=== PATIENT | female | born 1980 | race Caucasian/White ===

== ENCOUNTER 2017-02-28 18:00 | Inpatient (IN) | payer OTHER ==
[~2017-02-28] VITALS: Ht 157.5 cm; Wt 72.0 kg
[2017-02-28 21:08] LABS: PLATELET COUNT 249 x10^3mcL (130-400); RED CELL DISTRIBUTION WIDTH 13.8 % (11.5-14.5)
[2017-02-28 21:18] LABS: CARBON DIOXIDE 30.9 mmol/L (21-32); CHLORIDE SERUM 100 mmol/L (98-107); CREATININE SERUM 0.8 mg/dL (0.6-1.0); GFR1 > 60 mL/min; GLUCOSE SERUM 123 mg/dL (74-106); POTASSIUM SERUM 3.9 mmol/L (3.5-5.1); SODIUM SERUM 136 mmol/L (136-145)
[2017-02-28 21:22] LABS: ALBUMIN 3.7 g/dL (3.4-5.0); ALKALINE PHOSPHATASE 95 U/L (46-116); ALT/SGPT 23 U/L (14-59); AST/SGOT 3 U/L (15-37); LIPASE 101 IU/L (73-393)
[2017-02-28 21:42] LABS: BAND NEUTROPHIL 3 % (0-10); BASOPHIL 0 % (0-2); MONOCYTE 6 % (0-7); SEGMENTED NEUTROPHILS 83 % (37-75)
[2017-02-28 21:43] LABS: rbc morphology (normal/abnorm) NORMAL (NORMAL)
[2017-02-28 22:49] LABS: microscopic required? NO
[2017-02-28 23:17] LABS: urine erythrocyte NEGATIVE (NEGATIVE)
[2017-02-28 23:19] LABS: AMPHETAMINE QUAL UR NONE DETECTED (NEG <=1000)
[2017-02-28 23:39] LABS: MAGNESIUM 1.9 mg/dL (1.8-2.4); PHOSPHOROUS 3.4 mg/dL (2.5-4.9)
[2017-02-28 23:42] LABS: T3 TOTAL 1.06 ng/mL
[2017-02-28 23:49] VITALS: BP 112/62
[2017-02-28 23:50] LABS: FREE T4 0.95 ng/dL (0.76-1.46); FREE THYROXINE INDEX 2.7 ug/dL (1.4-4.5)
[2017-03-01] VITALS (7 sets, daily range): BP systolic 93–107; BP diastolic 41–65; Ht 157.5 cm; Wt 72.0 kg
[2017-03-01 07:49] LABS: BASOPHIL % 0.1 % (0-2); PLATELET COUNT 198 x10^3mcL (130-400); RED CELL DISTRIBUTION WIDTH 13.6 % (11.5-14.5)
[2017-03-01 08:00] LABS: CALCIUM 7.6 mg/dL (8.5-10.1); CARBON DIOXIDE 27.3 mmol/L (21-32); CHLORIDE SERUM 103 mmol/L (98-107); CREATININE SERUM 0.7 mg/dL (0.6-1.0); GFR1 > 60 mL/min; GLUCOSE SERUM 121 mg/dL (74-106); POTASSIUM SERUM 3.5 mmol/L (3.5-5.1); SODIUM SERUM 138 mmol/L (136-145)
[2017-03-02 05:39] VITALS: BP 90/50
[2017-03-02 06:31] LABS: CALCIUM 7.3 mg/dL (8.5-10.1); CARBON DIOXIDE 29.7 mmol/L (21-32); CHLORIDE SERUM 103 mmol/L (98-107); CREATININE SERUM 0.7 mg/dL (0.6-1.0); GFR1 > 60 mL/min; GLUCOSE SERUM 125 mg/dL (74-106); PHOSPHOROUS 2.6 mg/dL (2.5-4.9); SODIUM SERUM 139 mmol/L (136-145)
[2017-03-02 06:51] LABS: BASOPHIL % 0.2 % (0-2); PLATELET COUNT 193 x10^3mcL (130-400); RED CELL DISTRIBUTION WIDTH 13.7 % (11.5-14.5)
[2017-03-02 09:30] VITALS: BP 110/63
[2017-03-02 14:20] VITALS: BP 136/78
[2017-03-02 17:20] VITALS: BP 102/56
[2017-03-02 21:34] VITALS: BP 96/55
[2017-03-03 05:58] VITALS: BP 97/60
[2017-03-03 06:07] LABS: BASOPHIL % 0.3 % (0-2); PLATELET COUNT 192 x10^3mcL (130-400)
[2017-03-03 06:12] LABS: CALCIUM 7.6 mg/dL (8.5-10.1); CARBON DIOXIDE 29.1 mmol/L (21-32); CHLORIDE SERUM 106 mmol/L (98-107); CREATININE SERUM 0.8 mg/dL (0.6-1.0); GFR1 > 60 mL/min; GLUCOSE SERUM 95 mg/dL (74-106); PHOSPHOROUS 2.9 mg/dL (2.5-4.9); POTASSIUM SERUM 3.5 mmol/L (3.5-5.1); SODIUM SERUM 139 mmol/L (136-145)
[2017-03-03 09:44] VITALS: BP 101/64
[2017-03-03 14:02] VITALS: BP 101/70
[2017-03-03 17:12] VITALS: BP 106/66
[2017-03-03 21:02] VITALS: BP 107/61
[2017-03-04 05:12] VITALS: BP 104/65
[2017-03-04 06:10] LABS: BASOPHIL % 0.3 % (0-2); PLATELET COUNT 221 x10^3mcL (130-400); RED CELL DISTRIBUTION WIDTH 13.6 % (11.5-14.5)
[2017-03-04 06:15] LABS: CALCIUM 8.2 mg/dL (8.5-10.1); CARBON DIOXIDE 25.9 mmol/L (21-32); CHLORIDE SERUM 104 mmol/L (98-107); CREATININE SERUM 0.8 mg/dL (0.6-1.0); GFR1 > 60 mL/min; GLUCOSE SERUM 105 mg/dL (74-106); POTASSIUM SERUM 3.5 mmol/L (3.5-5.1); SODIUM SERUM 139 mmol/L (136-145)
[2017-03-04] MEDS ORDERED: COL100 PO (09:53)
[2017-03-04] MEDS ORDERED: APAP/HYDROCODON1 T13 PO (09:54)
[2017-03-04] MEDS ORDERED: KEFLEX250 M1 PO (09:55)
[2017-03-04 10:04] VITALS: BP 101/61
[2017-03-04 10:42] VITALS: BP 101/61
== END 2017-03-04 12:15 | disposition home or self-care (01) | DRG 223 ==
LOC: ED 18:00 → DU 22:07 → MU 03-04 09:26
PROVIDERS: Emergency Medicine; Family Medicine; ADMIT Family Medicine Sports Medicine
PROC: 0DTJ0ZZ Resection of Appendix, Open Approach (ICD-10-PCS; principal; 2017-02-28)
PROC: 0DJD4ZZ Inspection of Lower Intestinal Tract, Percutaneous Endoscopic Approach (ICD-10-PCS; 2017-02-28)
DX: K35.2 Acute appendicitis with generalized peritonitis (principal); E87.6 Hypokalemia; D64.9 Anemia, unspecified; Z68.28 Body mass index [BMI] 28.0-28.9, adult
CPT/HCPCS: 83880; 84439; 90658; 94150; 97110-GP; 97116-GP; 97530-GP; J0330; J1885; J2175; J2250; J2270; J2405; J2543; J2704; J2710; J3010; J3480; J3490; J7030; J7120; Q0092